=== PATIENT | male | born 1980 | race Caucasian/White ===

== ENCOUNTER 2017-09-18 11:22 | Emergency (ER) | payer BC, SELFPAY ==
[2017-09-18 12:13] VITALS: BP 151/89; PULSE 78; RESP 20; TEMP 36.7; O2SAT 96; BMI 46.0
[2017-09-18 12:34] LABS: UTC Influenza A Antigen Negative (Negative); UTC Influenza B Antigen Negative (Negative); UTC Strep Screen (Rapid) Negative (Negative)
--- NOTE | 2017-09-18 12:55 | HMH.EDUTC ---
[facility] [place] Disposition Clinical Impression: Sinusitis Qualifiers: Sinusitis location: other Chronicity: unspecified Qualified Code(s): J32.9 - Chronic sinusitis, unspecified Disposition: Home, Self-Care Condition on Discharge: Good Instructions: Sinusitis, Sinus Headache, DI for Sinusitis Additional Instructions: Start antibiotic. Sinus infections may take 2-3 days to notice much improvement so be sure to use conservative measures as discussed for symptoms Ok to continue Sudafed Flonase 2 spray in each nostril daily to help with nasal congestion, sinus an ear pressure/inflammation Lots of Fluids Sleep elevated Humidifer/vaporizer Augmentin can cause GI effects. Probiotics may help to prevent these symptoms Prescriptions: Amoxicillin/Potassium Clav [Augmentin 875-125 Tablet] 1 tab PO Q12H #14 tab predniSONE [Prednisone 20mg Tab] 20 mg PO BID #10 tab Promethazine/Dextromethorphan [Promethazine-Dm Syrup] 5 ml PO Q6H PRN #200 syrup PRN Reason: Cough Referrals: Omar Alford MD [Primary Care Provider] - Forms: Work/School Release Time of Disposition: 13:12 Medical Decision Making Vital Signs: 09/18/17 12:13 Temperature 98.1 F Temperature Source Oral Pulse Rate [Right Radial] 78 Respiratory Rate 20 Blood Pressure [Right Arm] 151/89 Blood Pressure Mean [Right Arm] 109 Blood Pressure Source [Right Arm] Automatic Cuff Blood Pressure Position [Right Arm] Sitting 02 Sat by Pulse Oximetry 96 Oxygen Delivery Method Room Air - Lab Data Lab Results 09/18/17 12:18: Influenza Type A Ag Negative, Influenza Type B Ag Negative, Strep Scn Rapid Clinic Negative Orders (Tests/Meds): ORDERS Category Date Time Status Strep Screen Confirmation Stat Micro 09/18/17 12:18 Received - Paulino Inquiry Pt receiving controlled substance: No Paulino was queried for this patient: No [facility] [place] HPI - General Stated complaint: head and chest congestion Mode of Arrival: Family Vehicle Source of Information: Patient Limitations: No Limitations Description of Symptoms (Recalled from Triage Doc. by RN): HEAD AND CHEST CONGESTION, SORE THROAT. HEENT Symptoms (Recalled from RN notes): Yes (HEAD CONGESTION, SORE THROAT) Resp Symptoms (Recalled from RN notes): Yes (CHEST CONGESTION) Skin Symptoms (Recalled from RN notes): No MS Symptoms (Recalled from RN notes): No Functional Status (Recalled from RN notes): NA - History of Present Illness Provider Complaint: Patient state that he has not been feeling well for over a week States that he has been having sore throat, cough nasal congestion, along with sinus pain and pressure State that he feels pressure behind his eyes that has continued to get worse over the last 8 days State that he feels tender under his eyes and was worried that he may have the flu - Related Data Home Medications Medication Instructions Recorded Confirmed Lisinopril [Lisinopril 10mg Tab] 10 mg PO DAILY 09/18/17 09/18/17 Meloxicam [Meloxicam] 15 mg PO DAILY 09/18/17 09/18/17 hydroCHLOROthiazide [HCTZ 25mg 25 mg PO DAILY 09/18/17 09/18/17 tab] Previous Rx's Medication Instructions Recorded Amoxicillin/Potassium Clav 1 tab PO Q12H #14 tab 09/18/17 [Augmentin 875-125 Tablet] Promethazine/Dextromethorphan 5 ml PO Q6H PRN #200 syrup 09/18/17 [Promethazine-Dm Syrup] predniSONE [Prednisone 20mg 20 mg PO BID #10 tab 09/18/17 Tab] Allergies Allergy/AdvReac Type Severity Reaction Status Date / Time No Known Allergies Allergy Verified 09/18/17 11:35 - Worker's Comp Is this a Worker's Comp case?: No [facility] History I have reviewed the patient's past medical history: Yes - *Social History Smoking Status: Current every day smoker Tobacco Type: cigarettes Alcohol Intake: never - Psychiatric History Expresses thoughts of harming self/others: None Suicide Plan Description: No Plan ROS Obtained: Yes All systems reviewed & no additional complaints - Constitutional C
--- NOTE | 2017-09-18 13:01 | ED_ITS ---
[facility] [place] Dis[place] Clinical Impression: Sinusitis Qualifiers: Sinusitis location: other Chronicity: unspecified Qualified Code(s): J32.9 - Chronic sinusitis, unspecified Disposition: Home, Self-Care Condition on Discharge: Good Instructions: Sinusitis, Sinus Headache, DI for Sinusitis Additional Instructions: Start antibiotic. Sinus infections may take 2-3 days to notice much improvement so be sure to use conservative measures as discussed for symptoms Ok to continue Sudafed Flonase 2 spray in each nostril daily to help with nasal congestion, sinus an ear pressure/inflammation Lots of Fluids Sleep elevated Humidifer/vaporizer Augmentin can cause GI effects. Probiotics may help to prevent these symptoms Prescriptions: Amoxicillin/Potassium Clav [Augmentin 875-125 Tablet] 1 tab PO Q12H #14 tab predniSONE [Prednisone 20mg Tab] 20 mg PO BID #10 tab Promethazine/Dextromethorphan [Promethazine-Dm Syrup] 5 ml PO Q6H PRN #200 syrup PRN Reason: Cough Referrals: Omar Alford MD [Primary Care Provider] - Forms: Work/School Release Time of Disposition: 13:12 Medical Decision Making Vital Signs: 09/18/17 12:13 Temperature 98.1 F Temperature Source Oral Pulse Rate [Right Radial] 78 Respiratory Rate 20 Blood Pressure [Right Arm] 151/89 Blood Pressure Mean [Right Arm] 109 Blood Pressure Source [Right Arm] Automatic Cuff Blood Pressure Position [Right Arm] Sitting 02 Sat by Pulse Oximetry 96 Oxygen Delivery Method Room Air - Lab Data Lab Results 09/18/17 12:18: Influenza Type A Ag Negative, Influenza Type B Ag Negative, Strep Scn Rapid Clinic Negative Orders (Tests/Meds): ORDERS Category Date Time Status Strep Screen Confirmation Stat Micro 09/18/17 12:18 Received - Paulino Inquiry Pt receiving controlled substance: No Paulino was queried for this patient: No [facility] [place] HPI - General Stated complaint: head and chest congestion Mode of Arrival: Family Vehicle Source of Information: Patient Limitations: No Limitations Description of Symptoms (Recalled from Triage Doc. by RN): HEAD AND CHEST CONGESTION, SORE THROAT. HEENT Symptoms (Recalled from RN notes): Yes (HEAD CONGESTION, SORE THROAT) Resp Symptoms (Recalled from RN notes): Yes (CHEST CONGESTION) Skin Symptoms (Recalled from RN notes): No MS Symptoms (Recalled from RN notes): No Functional Status (Recalled from RN notes): NA - History of Present Illness Provider Complaint: Patient state that he has not been feeling well for over a week States that he has been having sore throat, cough nasal congestion, along with sinus pain and pressure State that he feels pressure behind his eyes that has continued to get worse over the last 8 days State that he feels tender under his eyes and was worried that he may have the flu - Related Data Home Medications Medication Instructions Recorded Confirmed Lisinopril [Lisinopril 10mg Tab] 10 mg PO DAILY 09/18/17 09/18/17 Meloxicam [Meloxicam] 15 mg PO DAILY 09/18/17 09/18/17 hydroCHLOROthiazide [HCTZ 25mg 25 mg PO DAILY 09/18/17 09/18/17 tab] Previous Rx's Medication Instructions Recorded Amoxicillin/Potassium Clav 1 tab PO Q12H #14 tab 09/18/17 [Augmentin 875-125 Tablet] Promethazine/Dextromethorphan 5 ml PO Q6H PRN #200 syrup 09/18/17 [Promethazine-Dm Syrup]
== END 2017-09-18 13:16 | disposition home or self-care (01) ==
PROVIDERS: Emergency Provider Nurse Practitioner; PCP Family Medicine
DX: J32.9 Chronic sinusitis, unspecified (principal); Z79.899 Other long term (current) drug therapy; F17.210 Nicotine dependence, cigarettes, uncomplicated
CPT/HCPCS: 87804; 87880; 99202

== ENCOUNTER → 2018-02-26 12:00 | Outpatient (CLI) | payer BC, SELFPAY ==
--- NOTE | 2018-02-26 12:07 | XR_ITS ---
XR hand LT min 3V HISTORY: ITS.REASON: LEFT HAND PAIN ORDERING PHYSICIAN: Jaymie Dunaway PATIENT AGE: 37 years COMPARISON: Left hand 09/24/2012 FINDINGS: No fracture or dislocation. No lytic or blastic change. There is normal mineralization.. The joint spaces are well-preserved. No significant degenerative/arthritic changes. No erosive changes evident.. Is a tiny and likely metallic foreign body adjacent to the head of the second metacarpal and this was not seen on the previous left hand films in September 2012. IMPRESSION: Negative, no acute finding
== END ==
PROVIDERS: PCP Family Medicine; Visit Provider Nurse Practitioner
DX: M79.642 Pain in left hand (principal)
CPT/HCPCS: 73130

== ENCOUNTER → 2019-04-29 09:19 | Outpatient (CLI) | payer OTHER, SELFPAY ==
--- NOTE | 2019-04-29 | CA_ITS ---
APPROVED REPORT Technologist: Brenda Gutierrez, Ht: 6 ft 0 in Wt: 350 lbs BSA: 2.70 m2 Indications: Shortness of Air, HTN Medical History Medications: Lisinopril/HCTZ,,,,, MeLOXICAM,,,,, ZYRTEC,,,,, ADVAIR,,,,, Stress Test Details Test: Alex HR Resting HR: 79 bpm Max Heart Rate (APMHR): 184 bpm Max HR Achieved: 150 bpm Target HR (85% APMHR): 156 bpm % of APMHR: 81 Recovery HR: 93 bpm BP Resting BP: 131/74 mmHg Max BP: 180/84 mmHg Recovery BP: 130.0/55.0 mmHg ECG Clinical Exercise duration: 09:00 min Highest Stage Achieved: Exercise capacity: 10.1 METs Stress ECG Conclusion Alex Protocol completed. Exercised: 9:00 Mets: 10.1 Stopped due to shortness of breath. Symptoms: No Chest Pain. Positive for Shortness of Breath at peak exercise. Resolved in recovery. Arrhythmias/Ectopy: Occasional PVC ST-T Changes: less than 1.5mm ST Depression. GXT only Good exercise capacity Did not achieve maximum heart rate. Occasional PVC Negative test for ischemia at a good level of exercise Test Summary REST 02:55 0.0 0.0 79 . 131/ 74 . . Stage 1 01:00 10.0 1.7 97 . . . . Stage 1 02:00 10.0 1.7 107 . . . . Stage 1 03:00 10.0 1.7 110 . 138/ 80 . . Stage 2 01:00 12.0 2.5 117 . . . . Stage 2 02:00 12.0 2.5 125 . . . . Stage 2 03:00 12.0 2.5 134 . 150/ 90 . . Stage 3 01:00 14.0 3.4 144 . . . . Stage 3 02:00 14.0 3.4 149 . . . . Stage 3 03:00 14.0 3.4 147 . . . Stop exercise at 09:00 RECOVERY 01:00 0.0 0.0 128 . 180/ 84 . . RECOVERY 02:00 0.0 0.0 104 . 180/ 84 . . RECOVERY 03:00 0.0 0.0 99 . 180/ 84 . . RECOVERY 04:00 0.0 0.0 100 . 160/ 81 . . RECOVERY 05:00 0.0 0.0 91 . 160/ 81 . . RECOVERY 05:50 0.0 0.0 93 . 130/ 55 . . Electronically signed by : Francisco Rivas, 05/01/2019 13:32:53
== END ==
PROVIDERS: PCP Family Medicine; Visit Provider Family Medicine
DX: R06.09 Other forms of dyspnea (principal); I10 Essential (primary) hypertension; E66.01 Morbid (severe) obesity due to excess calories
CPT/HCPCS: 93017

== ENCOUNTER 2022-01-24 09:04 | Emergency (ER) | payer OTHER, SELFPAY ==
[2022-01-24 09:30] VITALS: BP 157/78; PULSE 88; RESP 18; TEMP 36.8; O2SAT 97; BMI 52.2
--- NOTE | 2022-01-24 09:50 | XR_ITS ---
FINAL REPORT CLINICAL HISTORY: pain in great toe- no injury just pain FINDINGS: AP, oblique and lateral views of the right foot were obtained. There is no prior exam for comparison. There is no acute fracture or dislocation. The joint spaces are preserved. There is mild forefoot soft tissue edema. IMPRESSION: No acute osseous abnormality of the right foot. Mild forefoot soft tissue edema. Consider MRI if symptoms persist. Reviewed, Interpreted and Dictated by Danay Hernandez MD Transcribed by Garrison Madden Authenticated by Danay Hernandez MD on 01/24/2022 11:07:[address] [facility]
--- NOTE | 2022-01-24 10:10 | HMH.EDUTC ---
[facility] [place] Clinical Impression: Pseudogout Disposition: Home, Self-Care Condition on Discharge: Good Instructions: Gout, DI for Gout Additional Instructions: Take medications as prescribed Follow up with your Family Doctor if symptoms persist Return if needed Straight to ER if any life threatening symptoms Prescriptions: Colchicine [Colcrys 0.6mg tablet] 0.6 mg PO DIRECTED #3 tab Transmission Status: Received by [facility] #[id number] Referrals: Omar Alford MD [Primary Care Provider] - As needed Time of Disposition: 11:12 Medical Decision Making - Paulino Inquiry Pt receiving controlled substance: No Paulino was queried for this patient: No Vital Signs: 01/24/22 09:30 01/24/22 10:51 Temperature 98.3 F 98.3 F Temperature Source Oral Pulse Rate 88 Pulse Rate [Right Brachial] 88 Respiratory Rate 18 18 Blood Pressure 157/78 H Blood Pressure [Right Arm] 157/78 H Blood Pressure Mean [Right Arm] 104 Blood Pressure Source [Right Arm] Automatic Cuff Blood Pressure Position [Right Arm] Sitting 02 Sat by Pulse Oximetry 97 Oxygen Delivery Method Room Air - Lab Data Lab results reviewed: Yes: I reviewed the patient's lab results. Lab Results 01/24/22 10:26: Uric Acid 8.5 Orders (Tests/Meds): ED MEDICATIONS Discontinued Medications Generic Name Dose Route Start Last Admin Trade Name Riki PRN Reason Stop Dose Admin Ketorolac Tromethamine 60 mg 01/24/22 11:00 01/24/22 11:16 Ketorolac 60mg/2ml Vial IM 01/24/22 11:01 60 mg ONCE ONE Administration Methylprednisolone Sodium Succinate 125 mg 01/24/22 11:00 01/24/22 11:16 Methylprednisolone Sod Succ 125mg Vial IM 01/24/22 11:01 125 mg ONCE ONE Administration - Radiology Data #1 Image(s): Foot/Toes Image Reviewed: Yes I reviewed the patient's radiology image Preliminary Findings: No Fracture Seen [facility] [place] - General Stated complaint: rt foot pain Time Seen by Provider: 01/24/22 10:10 Mode of Arrival: Ambulatory Source of Information: Patient Limitations: No Limitations Description of Symptoms (Recalled from Triage Doc. by RN): PATIENT C/O PAIN AND SWELLING UNDER RIGHT GREAT TOE SINCE MONDAY HEENT Symptoms (Recalled from RN notes): No Resp Symptoms (Recalled from RN notes): No Skin Symptoms (Recalled from RN notes): No MS Symptoms (Recalled from RN notes): Yes Functional Status (Recalled from RN notes): WNL - History of Present Illness Provider Complaint: Patient states that he has been having pain in his right great toe States that pain started on and he has been taking Motrin but not helped Denies known injury States that hurts when he touches it or tries to walk on it so today he came in to get checked - Related Data Home Medications Medication Instructions Recorded Confirmed Lisinopril/Hydrochlorothiazide 1 each PO DAILY 01/24/22 01/24/22 [Lisinopril-Hctz 20-25 mg Tab] Testosterone Cypionate 200 mg IM WEEKLY 01/24/22 01/24/22 Previous Rx's Medication Instructions Recorded Colchicine [Colcrys 0.6mg tablet] 0.6 mg PO DIRECTED #3 tab 01/24/22 Allergies Allergy/AdvReac Type Severity Reaction Status Date / Time No Known Allergies Allergy Verified 09/18/17 11:35 - Worker's Comp Is this a Worker's Comp case?: No [facility] History - Hepatitis A Screen Attestation statement:: This patient has been screened for Hepatitis A risk factors. I have reviewed the patient's past medical history: Yes - Social History Smoking Status: Current every day smoker Tobacco Type: cigarettes # Packs/Day (cigarettes): 1 Alcohol Intake: never Occupational Status: other ROS Obtained: Yes All systems reviewed & no additional complaints, Yes Systems reviewed as appropriate & no additional complaints - Constitutional Constitutional: Reports system reviewed and no additional complaints, except as docu, Denies body ache, Denies chills, Denies fever(s) - EN
[2022-01-24 10:48] LABS: Uric Acid 8.5 mg/dl (3.5-8.5)
[2022-01-24 10:51] VITALS: BP 157/78; PULSE 88; RESP 18; TEMP 36.8; O2SAT 97
== END 2022-01-24 11:22 | disposition home or self-care (01) ==
PROVIDERS: Emergency Provider Nurse Practitioner; PCP Family Medicine
DX: M10.071 Idiopathic gout, right ankle and foot (principal); Z72.0 Tobacco use
CPT/HCPCS: 73630; 84550; 96372; 99213; G0463

== ENCOUNTER 2022-04-10 15:39 | Emergency (ER) | payer OTHER, SELFPAY ==
--- NOTE | 2022-04-10 15:50 | XR_ITS ---
PROCEDURE INFORMATION: Exam: XR Left Knee Exam date and time: 04/10/2022 3:49 PM Age: 41 years old Clinical indication: Injury or trauma; Other: Twisted knee; Swelling (edema); Left; Additional info: Twisted/pain-- was walking twisted felt a pop and can not straighten knee at all -- xrays had to be taken with it bent- unable to weight bear or extend knee TECHNIQUE: Imaging protocol: Radiologic exam of the Left knee. Views: 3 views. COMPARISON: LEAJW/OLT MRI-LOW EXT ANY JOINT W/O-LT 10/28/2016 3:42 PM FINDINGS: Bones/joints: 22 mm exostosis at the medial femoral metaphysis, compatible with a small osteochondroma. Minimal tricompartmental osteoarthritis. No acute fracture, dislocation, or aggressive skeletal lesion. No joint effusions. No swelling. Soft tissues: See Bones/joints finding. IMPRESSION: 1. 22 mm medial femoral metaphyseal osteochondroma. 2. No acute skeletal pathology.
[2022-04-10 16:10] VITALS: BP 146/86; PULSE 85; RESP 18; TEMP 36.8; O2SAT 97; BMI 50.8
--- NOTE | 2022-04-10 16:40 | HMH.EDUTC ---
[facility] [place]position Clinical Impression: Knee pain, acute Qualifiers: Laterality: left Qualified Code(s): M25.562 - Pain in left knee Disposition: Home, Self-Care Condition on Discharge: Good Instructions: How to Use Crutches, DI for Chronic Pain -- Adult, How To Perform RICE (Rest, Ice, Compress, Elevate), Ibuprofen Additional Instructions: *No weight bearing as tolerated *RICE, Rest the extremity, Ice 15-20 minutes 3-4 times daily, Compress- wear the jan wrap as discussed as much as possible to help reduce swelling and pain, Elevate the extremity when at rest *Knee immobilizer is for support and help control swelling, use it except in the shower. Be sure that is not to tight but not to loose either *Elevate when resting *Ibuprofen 800mg every 8 hours as prescribed needed for pain an inflammation. If need something more can take Tylenol in between doses of Ibuprofen to help Immediately follow up with your family doctor for new or worsening of symptoms, or no noticeable improvement over the next 3-5 days Call office for appointment on Monday with Dr Barrow Referrals: Omar Alford MD [Primary Care Provider] - As needed Valentino Barrow JR, MD [Physician] - As needed (Call office for appointment on Monday) Time of Disposition: 16:57 Medical Decision Making - Paulino Inquiry Pt receiving controlled substance: No Paulino was queried for this patient: No Vital Signs: 04/10/22 16:10 04/10/22 17:05 Temperature 98.2 F 98.2 F Temperature Source Oral Pulse Rate 85 Pulse Rate [Right Brachial] 85 Respiratory Rate 18 18 Blood Pressure 146/86 H Blood Pressure [Right Arm] 146/86 H Blood Pressure Mean [Right Arm] 106 Blood Pressure Source [Right Arm] Automatic Cuff Blood Pressure Position [Right Arm] Sitting 02 Sat by Pulse Oximetry 97 Oxygen Delivery Method Room Air Orders (Tests/Meds): ED MEDICATIONS Discontinued Medications Generic Name Dose Route Start Last Admin Trade Name Freq PRN Reason Stop Dose Admin Ketorolac Tromethamine 60 mg 04/10/22 16:50 04/10/22 16:50 Ketorolac 60mg/2ml Vial IM 04/10/22 16:51 60 mg ONCE ONE Administration - Radiology Data #1 Image(s): Knee Image Reviewed: Yes I have reviewed radiologist's interpretation IMPRESSION: 1. 22 mm medial femoral metaphyseal osteochondroma. 2. No acute skeletal pathology. - Physician Consults Physician Consulted: Dr Barrow Time: 16:54 Reason -: Orthopedic Eval/Care Comment/Response: Spoke with Dr Barrow about xray findings and patient comlaints and concern for meniscal tear and he agreed Knee immobilizer crutches and have him follow up in office on Monday [facility] [place] HPI - General Stated complaint: pain L hip,knee,leg, something popper Time Seen by Provider: 04/10/22 16:40 Mode of Arrival: Ambulatory Source of Information: Patient Limitations: No Limitations Description of Symptoms (Recalled from Triage Doc. by RN): PATIENT STATES HE WAS WALKING TODAY AROUND NOON WHEN HE FELT SOMETHING SNAP IN HIS LEFT KNEE. HE C/O PAIN AND INABILITY TO BEAR WEIGHT ON THAT KNEE HEENT Symptoms (Recalled from RN notes): No Resp Symptoms (Recalled from RN notes): No Skin Symptoms (Recalled from RN notes): No MS Symptoms (Recalled from RN notes): Yes Functional Status (Recalled from RN notes): WNL - History of Present Illness Provider Complaint: Patient states that he was walking around earlier today and he felt a snap in his left knee States that ever since he has been unable to put weight on his left knee or straighten his leg well States that the pain was getting worse so brought him in - Related Data Home Medications Medication Instructions Recorded Confirmed Lisinopril/Hydrochlorothiazide 1 each PO DAILY 01/24/22 01/24/22 [Lisinopril-Hctz 20-25 mg Tab] Testosterone Cypionate 200 mg IM WEEKLY 01/24/22 01/24/22 Previous Rx's Medication Instructions Recorded Colchicine [Colcrys 0.6mg tablet] 0.6 mg PO A
[2022-04-10 17:05] VITALS: BP 146/86; PULSE 85; RESP 18; TEMP 36.8; O2SAT 97
== END 2022-04-10 17:12 | disposition home or self-care (01) ==
PROVIDERS: Emergency Provider Nurse Practitioner; PCP Family Medicine
DX: M25.562 Pain in left knee (principal); D16.22 Benign neoplasm of long bones of left lower limb
CPT/HCPCS: 73562; 99212; G0463

== ENCOUNTER 2024-12-04 08:55 | Emergency (ER) | payer BC, SELFPAY ==
--- NOTE | 2024-12-04 08:57 | ECG_ITS ---
APPROVED REPORT Exam: Resting ECG HR:80 bpm ECG Measurements Heart Rate 80 AXES MO 168 P 59 QRSd 121 QRS 18 QT 371 T 45 QTc 407 Conclusion SINUS RHYTHM POSSIBLE INFERIOR MYOCARDIAL INFARCTION , OF INDETERMINATE AGE [30 ms Q WAVE IN II/aVF] ABNORMAL ECG UNCONFIRMED REPORT Electronically signed by : ESSENCE SEALS, 12/05/2024 05:14:50
[2024-12-04 09:10] VITALS: BP 155/89; PULSE 74; RESP 17; TEMP 36.8; O2SAT 98; BMI 67.6
--- NOTE | 2024-12-04 09:21 | XR_ITS ---
FINAL REPORT CLINICAL HISTORY: soa, cp L parasternal, fatigue COMPARISON: None FINDINGS: PORTABLE CHEST: No acute pulmonary opacity is present. There is no evidence of effusion or pneumothorax. Mediastinum is unremarkable. Heart size is normal. IMPRESSION: No acute abnormality. Reviewed, Interpreted and Dictated by Leda Yang MD Transcribed by Mariah Ramsay Authenticated and [facility]
[2024-12-04 09:36] LABS: Basophils # 0.1 K/mm3 (0-0.2); Basophils % 0.8 % (0.1-2.0); Eosinophils # 0.2 K/mm3 (0.0-0.4); Eosinophils % 3.3 % (0.1-12.0); Hematocrit 45.5 % (42.0-52.0); Hemoglobin 15.2 g/dL (14.1-18.0); Lymphocytes # 2.1 K/mm3 (0.7-4.5); Lymphocytes % 29.7 % (10-50); Mean Corpuscular HGB Conc 33.4 g/dL (31.8-35.4); Mean Corpuscular Volume 80.8 fl (80-94); Mean Platelet Volume 9.9 fl (7.4-10.4); Monocytes # 0.5 K/mm3 (0.1-1.0); Monocytes % 7.1 % (1.7-9.3); Neutrophils # 4.2 K/mm3 (1.8-7.8); Neutrophils % 58.1 % (37.0-80.0); Platelet Count 286 K/mm3 (142-424); Red Blood Count 5.63 M/mm3 (4.60-6.20); Red Cell Distribution Width 12.8 % (11.5-17.5); White Blood Count 7.2 K/mm3 (4.8-10.8)
[2024-12-04 09:37] LABS: Activated Partial Thrombo Time 29.2 seconds (22.8-30.6); INR 0.94 (0.9-1.1); Prothrombin Time 10.6 seconds (10.1-12.5)
[2024-12-04 09:37] LABS: Lactate Venous 1.9 mmol/L (0.4-2.0); VBG Base Excess -3.3 mmol/L (-2.4-2.3); VBG HCO3 21.7 mmol/L (23-30); VBG Oxygen Saturation 97.5 % (50-70); VBG PCO2 36.9 mmol/L (35-51); VBG PH 7.39 mmol/L (7.31-7.41); VBG Total CO2 22.9 mmol/L (23-27)
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
[2024-12-04] MEDS: ASPIRIN 81MG CHEWABLE TABLET 324 MG PO (09:48)
[2024-12-04 09:50] LABS: Albumin Level 4.5 g/dl (3.5-5.0); Chloride 103 mmol/L (98-107)
--- NOTE | 2024-12-04 09:50 | PC.NURSE ---
I rounded on the pt and took him a cup of water. no needs voiced. no new complaints. pt talking with visitor. call wiggins in reach.
[2024-12-04 09:51] LABS: Potassium 4.3 mmoL/L (3.5-5.1); Sodium 137 mmol/L (136-145)
[2024-12-04 09:53] LABS: Alanine Aminotransferase 30 U/L (12-78); Aspartate Amino Transferase 26 U/L (17-59); Blood Urea Nitrogen 19 mg/dl (9-20); Creatinine Clearance Estimated 74 mL/min (50-200); Estimated Glomerular Filt Rate 82 ml/min (>60); GFR (African American) 99 ML/MIN (>60)
[2024-12-04 09:54] LABS: Albumin/Globulin Ratio 1.6 (1.1-1.8); Alkaline Phosphatase 70 U/L (38-126); Anion Gap 12.3 mEq/L (5-15); Bilirubin,Total 0.6 mg/dl (0.2-1.3); Calcium 9.2 mg/dl (8.4-10.2); Carbon Dioxide 26 mmol/L (22.0-30.0); Globulin 2.9 g/dL (1.3-3.2); Glucose 141 mg/dl (74-100); Total Protein,Serum 7.4 g/dl (6.3-8.2)
[2024-12-04 10:04] LABS: NT Pro Brain Natriuretic Pep. < 20.0 pg/mL (0-125)
[2024-12-04 10:11] VITALS: PULSE 74
[2024-12-04 10:12] LABS: T4 (Thyroxine) 8.1 ug/dl (5.53-11.0)
[2024-12-04 10:15] LABS: Troponin I < 0.01 ng/ml (0.00-0.034)
[2024-12-04 10:25] LABS: Thyroid Stimulating Hormone 1.32 uIU/mL (0.465-4.68)
[2024-12-04 10:34] LABS: HIV Combo NEGATIVE (Negative)
[2024-12-04 10:38] VITALS: BP 128/70; PULSE 70; RESP 17; TEMP 36.6; O2SAT 97
[2024-12-04 10:41] LABS: Hepatitis C Ab Qual. W/ RFX NEGATIVE (Negative)
== END 2024-12-04 10:45 | disposition home or self-care (01) ==
PROVIDERS: Emergency Provider Emergency Medicine; PCP Family Medicine
DX: R07.9 Chest pain, unspecified (principal); R53.83 Other fatigue; R06.9 Unspecified abnormalities of breathing; R60.0 Localized edema; I10 Essential (primary) hypertension; E78.5 Hyperlipidemia, unspecified; F17.210 Nicotine dependence, cigarettes, uncomplicated
CPT/HCPCS: 71045; 80053; 82803; 83735; 83880; 84436; 84443; 84484; 85025; 85610; 85730; 86803; 87389; 93005; 99284

== ENCOUNTER 2025-01-14 12:16 | Outpatient (CLI) | payer BC, SELFPAY ==
[2025-01-14 15:20] LABS: Coronavirus 19, PCR Not Detected (NotDetected); Influenza A, PCR Not Detected (NotDetected); Influenza B, PCR Not Detected (NotDetected)
--- OUTSIDE RECORDS SUMMARY | 2025-01-16 12:18 | XMS_ITS | Data Portability ---
Author Organization KASHIF LISA Jacobs [facility] Address [address] [facility] [address] [place] [address] Care Team Providers Care Manager Photography Name Role Phone ANCELMO LILA Referring Provider [phone] Assessment Encounter Date Assessment Date Assessment LastModified by Organization Details LastModified Time 11/09/2018 11/09/2018 Patient now is demonstrating normal segmental mobility throughout the lumbar spine and at the bilateral PSIS. Radiculopathy is resolved. Muscle spasms have resolved. No gait abnormalities. Upright erect posture. Good centralization of patient symptoms. Plan: Continue with current PT plan of care. Progress w/ updated HEP. See pt back 1 x next week. Not available 11/09/2018 13:24:37 11/19/2018 11/19/2018 Patient had significant decrease in pain with the muscle energy and Abeba mobilizations. Following these 2 mobilizations patient had no pain with PA mobilizations at the L2-L4 left facets of the left PSIS. There was no hypomobility with these mobilizations either. Range of motion of the lumbar spine is good. Radicular symptoms here to be significantly improved. His pain now seems to be facet in nature particularly with the increase in symptoms with extension. Patient responded well to mobilization of the left facets in the lumbar region today. Plan: Patient is to progress with the updated home program. He will be seen back next week. Not available 11/19/2018 13:40:58 11/26/2018 11/26/2018 Date of the initial evaluation 10/19/18 Patient has met the 4 week short-term goals perceptive the time of the initial evaluation. Patient has partially met the long-term goals in that he can ambulate on level surfaces insteps without a limp without pain. Ability to dress himself pain-free. No radicular symptoms in the bilateral lower extremities. Patient has not yet returned to work without restrictions he still is to lift less than 15 pounds. Trunk range of motion into flexion is still lagging. Patient continues to have strength deficiencies of the pelvic girdle and abdominals. Updated goals patient have an improvement in the strength of the pelvic girdle and abdominals by half muscle grade. Independent and pain free with an ongoing trunk stabilization exercise program. Manual muscle test: 3 out of 5. Active range of motion limitations: Minimal into flexion. Functional limitations: Minimal to moderate for he needs to have full trunk flexion and ability to lift up to 50 pounds secondary to his job. PSFS:-04/13 Plan: Patient will progress with the updated exercise program for trunk stabilization and pelvic girdle strengthening. He will be seen back in 3 weeks. If he is doing well at that time the exercise program will be updated and he will be discharged from physical therapy. Patient is in agreement with this plan. Not available 11/26/2018 18:37:32 12/14/2018 12/14/2018 MMT(current):4+t o 5/5 Active Range of Motion Limitations: none Impact on ADLs :none Functional Limitations: none Progress Since First Visit:signif PSFS:05/14 Short-term goals and long-term goals are met. Independent with home exercise program. Independent understanding of patient education. No longer requires skilled physical therapy services. Plan: Discharge patient from this episode of care. Not available 12/14/2018 11:50:03 Plan of Treatment Reminders Order Date Submit Date Provider Last Modified By Organization Details Last Modified Time Details Appointments None recorded. Lab None recorded. Referral None recorded. Procedures None recorded. Surgeries None recorded. Imaging XR, knee, 4 or more view - room #6 022 [email or web address] Not available 2 10:37:33 Medication Orders Medrol (Luis Eduardo) 4 mg tablets in a dose pack [email or web address] [id number], [address], [id number], 13:28:37 Patient TargetsNo targets recorded. Patient Instructions Encounter Date Encounter Id Patient Instructions Last Modified By Organization Details Last Modified Time 04/11/2022 [id number] patellar trackin g disorder: exercises Not available 04/11/2022 13:28:37 I think patient' s mental alignment of his patellofemoral joint is the main source of his discomfort and was likely triggered by a lot of climbing and squatting that he had done in the weeks prior to this event. I recommend a Medrol Dosepak and I have given him the quadriceps, hamstring, gastrocsoleus and piriformis stretching program to do for the next week. If and when pain resolves he can start on the strengthening. Like to see him back in 4 weeks for clinical check. He did not have the mechanism miss some of the injury for meniscal tear and I do think the root of his symptoms is coming from the patellofemoral joint. This does not appear to be gout related and that there is no effusion redness or warmth. Not available 04/11/2022 11:47:36 Reason for Referral None Reported. Results Created Date Observation Date Name Description Value Unit Range Abnormal Flag Note LastModifiedBy Organization Detail LastModifiedTime 04/11/20 22 04/11/2022 XR, knee, 4 or more view [place] [facility] [address] [address] Ihsan natasha Name: SAUL kaur : 1979 Ihsan kaur 70 Orderi ng Provid er: OLIMPIA COMER EXAM DATE: 2021 EXAM: XR LT KNEE COMPLE TE, 4 OR MORE VWS COMPAR DOMITILA: None. HISTOR Y: Left knee pain. FINDIN GS: No fractu re is identi fied. There are mild degene rative change s in the left knee. There is minima l to mild medial joint space loss. There is minima l to mild margin al spurri ng. There is spurri ng along the medial margin of the distal metaph ysis of the femur which may repres ent a muscul ar attach ment site. Contra latera l knee: There are modera te degene rative change s. IMPRES NAYLA: 1. There are mild degene rative change s in the left knee. Interp reted By: Moon lomas MD Electr onical ly Signed By: Moon lomas MD on 04/11/20 10:26 AM [email or web address] [facility] [place] [address], [place], [address], 04/12/2022 08:43:17 Result Notes None recorded. Problems Name Problem SNOMED Code Status Onset Date Resolution Date Notes Provider Name and Address Organization Details Recorded Time Lumbar radiculopathy 102803640 Active 2016 [facility], PT [address] [place], [address], [facility] 7 14:16:45 Low back pain 223373053 Active 2016 [facility], PT [address] [place], [address], [facility] 7 14:16:46 Abnormal gait 47309776 Active 2016 [facility], PT [address] [place], [address], [facility] 7 14:16:48 Abnormal posture 11312788 Active 2016 [facility], PT [address] [place], [address], [facility] 7 14:16:49 Cervical radiculopathy 69341060 Active 2017 [facility], PT [address] [place], [address], [facility] 8 17:13:33 Muscle spasm of head and/or neck 86380977 Active 2017 [facility], PT [address] [place], [address], [facility] 8 17:13:34 Incoordination 241964727 Active 2017 [facility], PT [address] [place], [address], [facility] 8 17:13:36 Scapulalgia 21150432 Active 2017 [facility], PT [address] [place], [address], [facility] 8 16:08:38 Pain in thoracic spine 144880490 Active 2017 [facility], PT [address] [place], [address], [facility] 8 16:08:40 Muscle weakness 81276659 Active 2017 [facility], PT [address] [place], [address], [facility] 8 16:08:42 Lumbar spine stiff 154719784 Active 2018 [facility], PT [address] [place], [address], [facility] 9 16:02:20 Problem Notes None recorded. Procedures Surgical History Date Name Laterality Status Provider Name and Address Organization Details Recorded Time 018 PT Evaluation - Moderate Complexity completed [facility], PT [address] [place], [address], [facility] 04/24/2018 15:52:22 018 PT Therapeutic Exercise completed [facility], PT [address] [place], [address], [facility] 04/24/2018 15:52:51 018 PT Therapeutic Exercise completed [facility], PT [address] [place], [address], [facility] 11/20/2017 13:13:41 018 PT Manual Therapy completed [facility], PT [address] [place], [address], [facility] 10/31/2017 13:05:36 018 PT Therapeutic Exercise completed [facility], PT [address] [place], [address], [facility] 10/31/2017 13:05:21 018 PT Manual Therapy completed [facility] Zaheer LEGERDAGOBERTO, PT [address] [place], [address], [facility] 10/23/2017 12:58:34 018 PT Therapeutic Exercise completed [facility], PT [address] [place], [address], [facility] 10/23/2017 12:58:12 018 PT Manual Therapy completed [facility], PT [address] [place], [address], [facility] 10/16/2017 13:09:52 018 PT Therapeutic Exercise completed [facility], PT [address] [place], [address], [facility] 10/16/2017 13:09:35 018 PT Mechanical Traction completed [facility], PT [address] [place], [address], [facility] 10/09/2017 13:19:11 018 PT Manual Therapy completed [facility], PT [address] [place], [address], [facility] 10/09/2017 13:19:21 018 PT Therapeutic Exercise completed [facility], PT [address] [place], [address], [facility] 10/09/2017 13:19:26 018 PT Evaluation - Moderate Complexity completed [facility], PT [address] [place], [address], [facility] 09/18/2017 16:55:31 018 PT Therapeutic Exercise completed [facility], PT [address] [place], [address], [facility] 09/18/2017 16:55:50 017 PT Therapeutic Exercise completed [facility], PT [address] [place], [address], [facility] 12/16/2016 13:21:05 017 Nasopharyngoscopy completed Venus Araujoson [facility] 12/06/2016 14:35:18 017 PT Therapeutic Exercise completed [facility], PT [address] [place], [address], [facility] 12/02/2016 14:58:55 017 PT Manual Therapy completed [facility], PT [address] [place], [address], [facility] 11/25/2016 13:35:04 017 PT Therapeutic Exercise completed [facility], PT [address] [place], [address], [facility] 11/25/2016 13:34:58 017 PT Ultrasound completed [facility], PT [address] [place], [address], [facility] 11/25/2016 13:36:09 017 PT Manual Therapy completed [facility], PT [address] [place], [address], [facility] 11/21/2016 13:07:56 017 PT Therapeutic Exercise completed [facility], PT [address] [place], [address], [facility] 11/21/2016 13:07:41 017 PT Ultrasound completed [facility], PT [address] [place], [address], [facility] 11/21/2016 13:08:11 017 PT Iontophoresis completed [facility], PT [address] [place], [address], [facility] 11/17/2016 13:40:36 017 PT Manual Therapy completed [facility] Za[facility] DAGOBERTO, PT [address] [place], [address], [facility] 11/17/2016 13:40:24 017 PT Therapeutic Exercise completed [facility]ED Schwab CROMWELL, PT [address] [place], [address], [facility] 11/17/2016 13:40:14 017 PT Evaluation - Moderate Complexity completed [facility] Zaheer DAGOBERTO, PT [address] [place], [address], [facility] 11/15/2016 14:05:00 017 PT Therapeutic Exercise completed [facility] Schwab CROMWELL, PT [address] [place], [address], [facility] 11/15/2016 14:05:06 Imaging Results Imaging Date Name Status LastModified by Organiz ation Details LastModified Time 04/11/2022 XR, knee, 4 or more view completed [email or web address] [facility] [place] [address], [place], [address], 04/12/2022 08:43:17 Procedure Notes None recorded. Medical Equipment None Reported. Allergies No known drug allergies Medications Name Sig Start Date Stop Date Status Note LastModified by Organization Details LastModified Time hydrocodone 5 mg-acetamino phen 325 mg tablet Take 1 tablet every 6 hours by oral route. 12/06 completed Not Available Not Available Not Available Medrol (Luis Eduardo) 4 mg tablets in a dose pack Take 1 dose pk by oral route. 2021 active Not Available Not Available Not Avai lable Zyrtec 10 mg tablet Take 1 tablet every day by oral route. active Not Available Not Available No t Available Mobic 15 mg tablet Take 1 tablet every day by oral route. 04/11 completed Not Available Not Available Not Available Zestril 2.5 mg tablet Take 2 tablets every day by oral route. 09/05 completed Not Available Not Available Not Available lisinopril 10 mg tablet Take 1 tablet every day by oral route. 04/11 completed Not Available Not Available Not Available lisinopril 20 mg-hydrochlo rothiazide 25 mg tablet Take 1 tablet every day by oral route. active Not Available Not Available No t Available hydrochlorot hiazide 25 mg tablet Take 1 tablet every day by oral route. 04/11 completed Not Available Not Available Not Available meloxicam 12/06 completed Not Available Not Available Not Available amoxicillin active Not Available Not A vailable Not Available Advair Diskus 04/11 completed Not Available Not Available Not Available Zyrtec 10 mg capsule Take by oral route. 04/11 completed Not Available Not Available Not Available Vitals Date Recorded Body height Body mass index (BMI) Body weight Provider Name and Address Organization Details Last Updated DateTime 04/11/2022 182.88 cm 47.5 kg/m2 918244.33 g Katerin Jakob [facility] 04/11/2022 09:56:41 Social History Question Answer Notes LastModified by [place] Details LastModified Time Tobacco Smoking Status Current Every Day Smoker Cristopher sánchez, [facility] 11/15/2016 10:02:45 Marital Status carl Informobed n not available 09/11/2017 What Was The Date Of Your Most Recent Tobacco Screening? 09/11/2017 Information n ot available 10/22/2019 How Much Tobacco Do You Smoke? 1 PPD [email or web address] Information not available 11/15/2016 How Many Years Have You Smoked Tobacco? 16 [email or web address] Information not available 11/15/2016 Sex: Unknown Functional Status Question Answer Note LastModified by [place]ai Details LastModified Time What is your level of alcohol consumption? 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 Family History Relationship Description Onset Age of this Age Resolved Age Notes LastModified by Organization Details LastModified Time Unspecified Relation Arthritis [email or web address] Not available 11/15 10:02:27 Father History of hypertension [email or web address] Not available 12/2016 13:36:51 Medical History Condition Response Diabetes N Allergies/Hayfever N Anxiety/Depression N Arthritis Y Heart Conditions N Hernia Y Migraines N Stroke N Asthma Y Pneumonia N Sleep Apnea Y High Cholesterol N Anesthesia Complications N Hypertension N Neurological Problems Past Encounters Encounter ID Performer Location Encounter Start Date Encounter Closed Date Diagnosis/Indication Diagnosis SNOMED-CT Code Diagnosis ICD10 Code Diagnosis Note [id number] VANE HOLMAN MD [facility] [place] [address] [place] [address] 11/15/2016 09:47:59 11/15/2016 10:39:13 Lumbar radiculopathy 929569070 M54.16 clinically I believe this is consistent with lumbar radiculopa thy.Provid ed him with a Medrol Dosepak as well as prescripti on for physical therapy. If this is not improved I would then consider MRI and referral to one of our it security specialist s. [id number] [facility], PT PHYSICAL THERAPY / HAND THERAPY [place] [address] [place] [address] 11/15/2016 10:46:30 11/15/2016 14:36:36 Lumbar radiculopathy 360695803 M54.16 Low back pain 823457108 M54.5 Abnormal gait 74737346 R 26.9 Abnormal posture 2910310 2 R29.3 [id number] [facility], PT PHYSICAL THERAPY / HAND THERAPY [place] [address] [place] [address] 11/17/2016 08:23:49 11/17/2016 15:11:51 Lumbar radiculopathy 657844242 M54.16 Abnormal gait 39961164 R 26.9 Low back pain 417966642 M54.5 Abnormal posture 4350232 2 R29.3 [id number] [facility], PT PHYSICAL THERAPY / HAND THERAPY [place] [address] [place] [address] 11/21/2016 08:33:36 11/21/2016 13:33:00 Lumbar radiculopathy 961520489 M54.16 Abnormal gait 30281874 R 26.9 Low back pain 521046313 M54.5 Abnormal posture 5077526 2 R29.3 [id number] [facility], PT PHYSICAL THERAPY / HAND THERAPY [place] [address] [place] [address] 11/25/2016 08:41:54 11/25/2016 14:00:30 Lumbar radiculopathy 494299767 M54.16 Abnormal gait 40048598 R 26.9 Low back pain 186939026 M54.5 Abnormal posture 5172010 2 R29.3 [id number] [facility], PT PHYSICAL THERAPY / HAND THERAPY [facility] [address] [place] [address] 12/02/2016 08:39:33 12/02/2016 15:19:46 Lumbar radiculopathy 543156480 M54.16 Abnormal gait 07601630 R 26.9 Low back pain 102768373 M54.5 Abnormal posture 6181412 2 R29.3 [id number] CHITRA MARTINEZ MD [place] [facility] [address] [place] [address] 12/06/2016 13:13:19 12/08/2016 12:08:08 Snoring 45808623 R06.83 Obstructiv e sleep apnea of adult 6273043438 103 G47.33 low lying palate and elongated uvula Hypertroph y of tonsils 37439286 J35.1 Deviated nasal septum 12 0472577 J34.2 Hypertroph y of nasal turbinates 08671844 J34.3 Fatigue 48581142 R53.83 [id number] [facility], PT PHYSICAL THERAPY / HAND THERAPY [facility] [address] [place] [address] 12/16/2016 08:20:19 12/16/2016 15:19:53 Lumbar radiculopathy 418347232 M54.16 Low back pain 329612966 M54.5 Abnormal posture 2538461 2 R29.3 Abnormal gait 44303779 R 26.9 [id number] HARRY HERRERA MD ORTHOPEDI [facility] [address] [place] [address] 01/02/2017 14:34:26 01/02/2017 15:51:00 Knee pain 81143178 M25.561 Mr Aaron has sustained a work related sprain of the right knee.I recommend that he remain off work for the next 10 days and do a gentle exercise program at home. If he has persistent symptoms when he returns I will recommend MRI of the knee to evaluate for internal derangemen t. [id number] HARRY HERRERA MD ORTHOPEDI [facility] [address] [address] 01/11/2017 08:24:31 01/11/2017 09:10:49 Knee pain 00106718 M25.561 Mr Aaron's right knee pain after work injury is improving with conservati ve treatment. I recommend he continue with the current treatment of ibuprofen and ice. He will return in 3 weeks if he has resolved his symptoms I will recommend discharge from this episode of care. If he has persistent mechanical symptoms I will recommend MRI of the knee. [id number] CHITRA MARTINEZ [facility] [address] [place] [address] 01/17/2017 09:02:59 01/17/2017 09:05:58 [id number] HARRY HERRERA MD ORTHOPED[facility] [address] [address] 02/01/2017 08:17:12 02/01/2017 10:29:35 Knee pain 89932961 M25.561 Mr Aaron's right knee pain after work injury is improving with conservati ve treatment. I recommend he continue with the current treatment of ibuprofen and ice. He will return if he has recurrent symptoms.I currently recommend discharge from this episode of care. If he has persistent mechanical symptoms I will recommend MRI of the knee. [id number] CHITRA MARTINEZ MD [place] [facility] [address] [place] [address] 02/20/2017 15:47:30 02/20/2017 17:46:08 Snoring 81440446 R06.83 Obstructiv e sleep apnea of adult 2952282791 103 G47.33 low lying palate and elongated/ edematous uvula Fatigue 01319569 R53.83 Hypertroph y of tonsils 46563343 J35.1 Deviated nasal septum 12 6446398 J34.2 Hypertroph y of nasal turbinates 14776267 J34.3 Acquired macroglossia 19 5051480 K14.8 [id number] CHITRA MARTINEZ [facility] [address] [place] [address] 03/14/2017 16:13:05 03/15/2017 09:22:19 [id number] CHITRA MARTINEZ MD [facility] [address] [place] [address] 03/20/2017 09:01:27 03/20/2017 09:01:53 [id number] CHITRA MARTINEZ MD [facility] [address] [place], [place] [address] 04/17/2017 13:21:53 04/17/2017 13:25:41 [id number] CHITRA MARTINEZ MD [facility] [address] [place] [address] 05/15/2017 13:11:46 05/15/2017 13:12:45 [id number] CHITRA MARTINEZ MD [facility] [address] [place] [address] 05/29/2017 16:24:40 05/29/2017 16:25:40 [id number] CHITRA MARTINEZ MD [facility] [address] [place] [address] 08/16/2017 09:15:31 08/16/2017 09:16:08 [id number] LILA GA MD NEUROS[facility]G [facility] [address] [place] [address] 09/05/2017 08:20:07 09/05/2017 09:33:42 Paresthesia of upper limb 43905577 R20.2 Pain of sh ld region 66106533 M25.839 [id number] ELENO MARTÍNEZ MD NEUROLOGY [facility] [address] [place] [address] 09/11/2017 08:49:14 09/11/2017 09:28:17 Bilateral carpal tunnel syndrome 5557399522 1046469 G56.03 He has been having intermitte nt numbness and tingling in his hands for the last 4-5 months, worse in the left hand. He occasional ly wakes up at night with his hands numb and tingly. The numbness is worse with holding his hands outstretch ed. 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 He had EMG/NCV studies performed at [facility] which showed mild bilateral carpal tunnel syndrome, left more than right, no radiculopa thy. I discussed treatment options for carpal tunnel? ? nothing, wrist splints or surgery. I recommende d a trial of wrist splints. I gave him a prescripti on for cockup wrist splints and I explained how this helps with CTS. I explained that CTS is caused by thickening of the ligament at the wrist which causes causes pressure on the median nerve at the wrist which causes the hand paresthesi as. He was wondering if his neck and shoulder problems were related to this and I told him they are not.I told him the EMG portion of the test would have shown if he had a pinched nerve in his neck. Neck pain 38342984 M54.2 He does have some neck and shoulder pain.MRI scan showed mild degenerati ve changes.He is on meloxicam. He starts physical therapy for this next week. [id number] [facility], PT PHYSICAL THERAP[facility] [address] [place] [address] 09/18/2017 08:18:14 09/19/2017 08:44:46 Cervical radiculopathy 91491821 M54.12 Muscle spa sm of head and/or neck 63375439 M62.838 Incoordination 189773958 R27.9 Abnormal posture 5675884 2 R29.3 [id number] [facility], PT PHYSICAL THERAPY [facility] [address] [place] [address] 10/09/2017 09:47:03 10/09/2017 14:34:53 Cervical radiculopathy 01969386 M54.12 Abnormal posture 3122474 2 R29.3 Stiff back 886564904 M25 .60 Incoordination 835556018 R27.9 [id number] [facility], PT PHYSICAL THERAPY / HAND THERAPY [facility] [address] [place] [address] 10/16/2017 10:26:40 10/16/2017 13:24:50 Muscle spasm of head and/or neck 91914677 M62.838 Cervical radiculopathy 38630014 M54.12 Abnormal posture [id number] 2 R29.3 Incoordination [id number] R27.9 [id number] [facility] PHYSICAL THERAP[facility] / [place] [address] 10/23/2017 08:58:25 10/23/2017 13:11:54 Muscle spasm of head and/or neck 43000009 M62.838 Cervical radiculopathy 07689661 M54.12 Abnormal posture 2540246 2 R29.3 Incoordination 268874797 R27.9 [id number] [facility] PHYSICAL [facility]ER[facility] / HAND THERAPY [place] [address] 10/31/2017 07:58:18 10/31/2017 13:09:56 Cervical radiculopathy 75737021 M54.12 Muscle spa sm of head and/or neck 41088015 M62.838 Abnormal posture 6660008 2 R29.3 Incoordination 211380339 R27.9 [id number] [facility] [address] [place] [address] 11/14/2017 15:17:29 11/14/2017 15:27:19 [id number] [facility] PT PHYSICAL THERAPY / HAND THERAPY [place] [address] [place] [address] 11/20/2017 09:26:12 11/20/2017 13:18:55 Cervical radiculopathy 56193980 M54.12 Incoordination 861398808 R27.9 Abnormal posture 7378629 2 R29.3 [id number] [facility] [address] [place], [place] [address] 03/13/2018 12:56:46 03/13/2018 13:03:49 [id number] [facility] PH[facility]ICAL [facility] / [place] [address] 04/24/2018 08:29:39 04/24/2018 16:19:44 Scapulalgia 46065827 M89.8X1 Pain in th oracic spine 987322355 M54.6 Muscle weakness 23153802 M62.81 Abnormal posture 3870019 2 R29.3 [id number] [facility] PHYSICAL [facility]ER[facility] / HAND THERAPY [facility] [address] 05/04/2018 09:04:32 05/04/2018 14:18:45 Scapulalgia 21164885 M89.8X1 Muscle weakness 71809917 M62.81 Pain in th oracic spine 358811665 M54.6 [id number] [facility] PT PHYSICAL THERAPY / HAND THERAPY [facility] [address] 05/11/2018 08:30:18 05/11/2018 16:24:35 Scapulalgia 84358265 M89.8X1 Muscle weakness 91795162 M62.81 Pain in th oracic spine 433004053 M54.6 [id number] [facility] PHYSICAL [facility]ERAP[facility] / HAND THERAPY [facility] [address] 05/22/2018 08:25:39 05/22/2018 13:15:34 Scapulalgia 19599172 M89.8X1 Muscle weakness 11849230 M62.81 Pain in th oracic spine 910327558 M54.6 [id number] [facility] PHYSICAL [facility]AP[facility] / HAND THERAPY [place] [address] [place] [address] 10/19/2018 11:45:52 10/19/2018 16:16:00 Low back pain 525122110 M54.5 Lumbar radiculopathy 128 768557 M54.16 Abnormal gait 57252359 R 26.9 Lumbar spine stiff 68068 6009 M25.60 [id number] [facility] PH[facility]ICAL [facility]AP[facility] / HAND THERAPY [facility] [address] 10/22/2018 09:27:46 10/22/2018 11:09:18 Lumbar radiculopathy 204584106 M54.16 Low back pain 978059239 M54.5 Abnormal gait 87324187 R 26.9 [id number] [facility] PT PHYSICAL THERAPY / HAND THERAPY [facility] [address] [place] [address] 10/26/2018 07:24:55 10/29/2018 12:46:49 Lumbar radiculopathy 203966119 M54.16 Abnormal gait 86055198 R 26.9 Muscle weakness 16382291 M62.81 Low back pain 629761366 M54.5 [id number] [facility] PHYSICAL THERAPY / HAND TH[facility]APY [facility] [address] [place] [address] 10/30/2018 07:55:00 10/30/2018 13:33:39 Lumbar radiculopathy 470924298 M54.16 Abnormal gait 67499459 R 26.9 Low back pain 769328203 M54.5 [id number] [facility] PT PHYSICAL THERAPY / HAND THERAPY [facility] [address] [place] [address] 11/02/2018 07:57:14 11/06/2018 09:47:58 Lumbar radiculopathy 031980365 M54.16 Muscle weakness 16018094 M62.81 Low back pain 386555987 M54.5 [id number] [facility] PT PHYSICAL THERAPY / HAND THERAPY [facility] [address] [place] [address] 11/09/2018 11:21:53 11/09/2018 14:56:23 Lumbar radiculopathy 166594931 M54.16 Low back pain 996960360 M54.5 Lumbar spine stiff 25965 6009 M25.60 [id number] [facility] PT PHYSICAL THERAPY / HAND THERAPY [facility] [address] [place] [address] 11/19/2018 08:28:15 11/19/2018 16:05:26 Low back pain 589677961 M54.5 Lumbar radiculopathy 128 665599 M54.16 Lumbar spine stiff 37832 6009 M25.60 [id number] [facility] PT PHYSICAL THERAPY / HAND THERAPY [facility] [address] [place] [address] 11/26/2018 08:57:32 11/27/2018 07:27:31 Low back pain 647620559 M54.5 Muscle weakness 26082440 M62.81 Lumbar spine stiff 83239 6009 M25.60 [id number] [facility] PT PHYSICAL THERAPY / HAND THERAPY [facility] [address] [place] [address] 12/14/2018 08:27:00 12/14/2018 11:54:12 Low back pain 580011725 M54.5 Lumbar radiculopathy 128 963307 M54.16 Lumbar spine stiff 27988 6009 M25.60 Abnormal posture 9022094 2 R29.3 [id number] [facility] [address] [place] [address] 04/11/2022 09:50:10 04/11/2022 10:37:32 Pain of left knee region 8072610546 98139 M25.562 Patellofem oral syndrome of left knee 3943947644 437197 M22.2X2 Health Concerns Section Related Observation LastModified by Organization Detai ls LastModified Time None Recorded Concern Status LastModified by Organization Details LastModified Time None Recorded Advance Directives Directive None Recorded Payers Insurance Date Sequence Insurance Name Policy Number Policy [place] Covered Member ID [place] Member ID Guarantor Name 04/11/2022 1 [employer] - OPEN ACCESS - NATIONAL (POS) [id number] Paige Aaron [id number] Maximo Aaron 04/11/2022 1 [place] [id number] Maximo Aaron [id number] Maximo Aaron Notes Date Note Type Note Provider Name and Address Organization Details Recorded Time 11/09/2018 text/html Medications sinc e Monday. He has had only 1 day that was Leora rough . Patient states sitting in the chair he has no pain. Walking up the steps to this appointment he had some mild pain in the central left buttock and then more significant into the central lower lumbosacral spine. [facility], PT [address] [place], [address], [facility] 11/09/2018 13:26:04 11/19/2018 text/html Patient has no pain at present. In general he says he is doing much better. No radicular symptoms. When present, pain is in left PSIS and across the lumbar spine on the left. [facility] DAGOBERTO, PT [address] [place], [address], [facility] 11/19/2018 13:43:25 11/26/2018 text/html Patient reports that His current pain level is 0 out of 10. At the end of the week he had 3 out of 10 pain level. He denies any paresthesia or numbness or tingling today. He feels that he is making good progress. Frequency of symptoms: Episodic with lifting and trunk rotation. [facility] DAGOBERTO, PT [address] [place], [address], [facility] 11/26/2018 18:37:37 12/14/2018 text/html Patient states that he spent greater than a week since he has had any back or hip pain. He is back to his normal activity level. He is being careful with sneezing and coughing activities and attempting to bend his knees and not try to suppress sneeze or cough. He is pleased with his status. He feels comfortable with his home program. [facility] DAGOBERTO, PT [address] [place], [address], [facility] 12/14/2018 11:51:21 04/11/2022 text/html Mr. Aaron comes in with left knee pain after he felt a snap in his medial knee. No injury. He did report soreness for a few weeks. He is using crutches to ambulate. 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 ISAIAH [place]NA [address] [place], [address], [facility] 04/11/2022 11:47:53
== END 2025-01-14 23:59 | disposition home or self-care (01) ==
LOC: LAB.DROPOF 01-16 12:16
PROVIDERS: PCP Family Medicine; Visit Provider Student in an Organized Health Care Education/Training Program
DX: R05.9 Cough, unspecified (principal)
CPT/HCPCS: 87636